=== PATIENT | male | born 1990 | race Caucasian/White ===

== ENCOUNTER 2023-02-20 22:09 | Inpatient (IN) | payer BC, MEDICARE ==
[~2023-02-20] VITALS: Ht 182.9 cm; Wt 105.8 kg
[2023-02-20 22:42] LABS: BASO # 0.1 10^3/uL (0.0-0.2); BASO % 0.6 % (0.0-1.0); EOS # 0.1 10^3/uL (0.0-0.5); EOS % 0.6 % (0.0-3.0); HEMATOCRIT 43.4 % (42.0-52.0); HEMOGLOBIN 15.6 g/dl (13.5-17.5); LYMPH # 2.8 10^3/uL (1.5-5.0); LYMPH % 28.6 % (24.0-44.0); MEAN CORPUSCULAR HEMOGLOBIN 30.6 pg (27.0-33.0); MEAN CORPUSCULAR HGB CONC 35.9 g/dl (32.0-36.5); MEAN CORPUSCULAR VOLUME 85.3 fl (80.0-96.0); MONO % 9.9 % (2.0-8.0); PLATELET COUNT, AUTOMATED 258 10^3/uL (150-450); RED BLOOD COUNT 5.09 10^6/uL (4.30-6.10); WHITE BLOOD COUNT 9.9 10^3/uL (4.0-10.0)
[2023-02-20 22:53] LABS: INR 0.96; PARTIAL THROMBOPLASTIN TIME 30.8 SECONDS (24.8-34.2)
[2023-02-20 23:06] LABS: CK-MB VALUE MASS < 1.0 NG/ML (<3.6)
[2023-02-20 23:10] LABS: CPK CREATINE PHOSPHOKINASE 69 U/L (46-171); MB/CK RELATIVE INDEX 1.44 (< OR =4)
[2023-02-21] VITALS (10 sets, daily range): BP systolic 132–152; BP diastolic 65–94; TEMP 98.5–100.6; O2SAT 91–97
[2023-02-21] LABS: MONO REFLEX EBV COMP NEGATIVE (NEGATIVE)
[2023-02-21 00:03] LABS: ERYTHROCYTE SEDIMENTATION RATE 40 mm/hr (0-15)
[2023-02-21] MEDS ORDERED: ONDANSETRON 4MG 2ML VIAL As Ordered ONE (00:19)
[2023-02-21] MEDS ORDERED: NS 1,000 ML IV ONE (00:25)
[2023-02-21] MEDS ORDERED: ONDANSETRON 4MG 2ML VIAL IV ONE (00:25)
[2023-02-21 01:01] LABS: CK-MB VALUE MASS < 1.0 NG/ML (<3.6)
[2023-02-21 01:02] LABS: CPK CREATINE PHOSPHOKINASE 54 U/L (46-171); MB/CK RELATIVE INDEX 1.85 (< OR =4)
[2023-02-21 01:19] LABS: RSV AMPLIFICATION NEGATIVE (NEGATIVE)
[2023-02-21] MEDS ORDERED: ACETAMINOPHEN 500 MG TAB PO ONE (01:30)
[2023-02-21] MEDS: methylPREDNISolone 125MG 2ML VIAL IV ONE ×2 (01:52→01:53)
[2023-02-21] MEDS ORDERED: methylPREDNISolone 1,000 MG, VIAL MATE ADAPTER 1 EACH in NS 250 ML IV ONE (01:55)
[2023-02-21 02:20] LABS: RHEUMATOID FACTOR QUANT < 3.5 IU/ML (<14)
[2023-02-21 02:23] LABS: VITAMIN B12 LEVEL 591 PG/ML (211-911)
[2023-02-21] MEDS ORDERED: OMEP20TA2 PO (02:54)
[2023-02-21] MEDS ORDERED: HOME MED LIST COMPLETE! XX SCH (02:55)
[2023-02-21] MEDS: cefTRIAXone SOD 1 GM in D5W MINI-BAG PLUS 50 ML IV SCH (06:11)
[2023-02-21 07:56] LABS: ALBUMIN 4.1 G/DL (3.2-5.2); ALKALINE PHOSPHATASE 71 U/L (46-116); ALT/SGPT 46 U/L (7.0-40); AST/SGOT 18 U/L (<34); BILIRUBIN,TOTAL 1.3 MG/DL (0.3-1.2); BLOOD UREA NITROGEN 8 MG/DL (9-23); CALCIUM LEVEL 8.8 MG/DL (8.5-10.1); CARBON DIOXIDE LEVEL 25 MMOL/L (20-31); CHLORIDE LEVEL 105 MMOL/L (98-107); CREATININE FOR GFR 0.98 MG/DL (0.70-1.30); GLOMERULAR FILTRATION RATE > 60.0 (>60); GLUCOSE, FASTING 152 MG/DL (60-100); POTASSIUM SERUM 4.2 MMOL/L (3.5-5.1); SODIUM LEVEL 137 MMOL/L (136-145); TOTAL PROTEIN 7.5 G/DL (5.7-8.2)
[2023-02-21] MEDS: PANTOPRAZOLE 40MG TAB (PROTONIX) PO SCH (09:52)
[2023-02-21] MEDS: ACETAMINOPHEN TAB 650MG DOSE (2X325MG) PO PRN ×2 (09:52→20:06)
[2023-02-21] MEDS ORDERED: LIDOCAINE 1% MDV 20ML VIAL As Ordered ONE (10:52)
[2023-02-21] MEDS ORDERED: BISACODYL 10MG SUPP PR PRN (13:20)
[2023-02-21] MEDS ORDERED: FLEET OIL RETENTION ENEMA PR PRN (13:20)
[2023-02-21 13:38] LABS: APPEARANCE, CSF CLEAR (CLEAR); COLOR, CSF COLORLESS (COLORLESS); CSF TUBE# CELL CNT TUBE 1
[2023-02-21 13:55] LABS: CSF TUBE# TP TUBE 2; TOTAL PROTEIN,CSF 206.2 MG/DL (15-45)
[2023-02-21 13:57] LABS: CSF TUBE# GLU TUBE 2
[2023-02-21] MEDS ORDERED: DOCUSATE SODIUM 100MG CAPSULE PO SCH (21:00)
[2023-02-21] MEDS: SENOKOT S TAB PO SCH (21:43)
[2023-02-21] MEDS ORDERED: IMMUNE GLOBULIN 10% 0 GM in IV 1 EA IV SCH (21:45)
[2023-02-21] MEDS ORDERED: IMMUNE GLOBULIN 10% 40 GM in IV 1 EA IV SCH (22:00)
[2023-02-21] MEDS ORDERED: IMMUNE GLOBULIN 10% 20 GM in IV 1 EA IV SCH (22:00)
[2023-02-21] MEDS ORDERED: IMMUNE GLOBULIN 10% 10 GM in IV 1 EA IV SCH (22:00)
[2023-02-22 04:00] VITALS: BP 118/74; TEMP 98; O2SAT 95
[2023-02-22 05:25] LABS: BASO % 0.2 % (0.0-1.0); EOS % 0.1 % (0.0-3.0); HEMATOCRIT 43.3 % (42.0-52.0); HEMOGLOBIN 14.9 g/dl (13.5-17.5); LYMPH # 1.7 10^3/uL (1.5-5.0); LYMPH % 15.9 % (24.0-44.0); MEAN CORPUSCULAR HEMOGLOBIN 29.9 pg (27.0-33.0); MEAN CORPUSCULAR HGB CONC 34.4 g/dl (32.0-36.5); MEAN CORPUSCULAR VOLUME 86.9 fl (80.0-96.0); MONO # 0.8 10^3/uL (0.0-0.8); NEUTROPHILS # 8.2 10^3/uL (1.5-8.5); NEUTROPHILS % 76.1 % (36.0-66.0); PLATELET COUNT, AUTOMATED 267 10^3/uL (150-450); RED BLOOD COUNT 4.98 10^6/uL (4.30-6.10); WHITE BLOOD COUNT 10.7 10^3/uL (4.0-10.0)
[2023-02-22 05:31] LABS: BLOOD UREA NITROGEN 16 MG/DL (9-23); CALCIUM LEVEL 8.6 MG/DL (8.5-10.1); CARBON DIOXIDE LEVEL 26 MMOL/L (20-31); CHLORIDE LEVEL 103 MMOL/L (98-107); GLOMERULAR FILTRATION RATE > 60.0 (>60); GLUCOSE, FASTING 113 MG/DL (60-100); POTASSIUM SERUM 4.4 MMOL/L (3.5-5.1); SODIUM LEVEL 135 MMOL/L (136-145)
[2023-02-22] MEDS: cefTRIAXone SOD 1 GM in D5W MINI-BAG PLUS 50 ML IV SCH (06:07)
[2023-02-22 08:00] VITALS: BP 119/78; TEMP 98.4; O2SAT 94
[2023-02-22] MEDS: PANTOPRAZOLE 40MG TAB (PROTONIX) PO SCH (08:09)
[2023-02-22] MEDS: ACETAMINOPHEN TAB 650MG DOSE (2X325MG) PO PRN (08:12)
[2023-02-22] MEDS: SENOKOT S TAB PO SCH (08:45)
[2023-02-22] MEDS ORDERED: methylPREDNISolone 1,000 MG, VIAL MATE ADAPTER 1 EACH in NS 250 ML IV SCH (09:00)
[2023-02-22] MEDS ORDERED: BETHANECHOL 10 MG TAB PO SCH ×2 (09:00→13:00)
[2023-02-22] MEDS ORDERED: METH1VL IV (10:53)
[2023-02-22] MEDS ORDERED: PANT40TA29 PO (10:53)
[2023-02-22] MEDS ORDERED: [UNRECOGNIZED DRUG - CODE] IV (10:53)
[2023-02-22] MEDS ORDERED: BETH10TA4 PO (10:53)
[2023-02-22] MEDS ORDERED: CEFT1INJ4 IV (10:54)
[2023-02-22 12:00] VITALS: BP 120/77; TEMP 98.9; O2SAT 96
[2023-02-22 16:09] LABS: EBV VIRAL CAPSID AG IgM <36.0 U/mL (0.0-35.9)
== END 2023-02-22 13:28 | disposition short-term general hospital (02) | DRG 40 ==
LOC: M ED 22:09 → M ED INP 02-21 04:09 → ENRESERV 02-21 05:03 → M PCU 02-21 05:35 → M ICU 02-21 05:45
PROVIDERS: ADMIT Internal Medicine; ATTEND Internal Medicine
PROC: 009U3ZX Drainage of Spinal Canal, Percutaneous Approach, Diagnostic (ICD-10-PCS; principal; 2023-02-21 11:00)
DX: G37.3 Acute transverse myelitis in demyelinating disease of central nervous system (principal); G61.0 Guillain-Barre syndrome; Z79.899 Other long term (current) drug therapy; G82.20 Paraplegia, unspecified